=== PATIENT | male | born 1965 | race American Indian/Alaskan Native ===

== ENCOUNTER 2016-06-21 17:50 | Emergency (ER) | payer SELFPAY ==
--- NOTE | 2016-06-21 22:55 | Emergency Department Report ---
ED General Adult HPI - General Chief complaint: Extremity Injury, Upper Stated complaint: LEFT WRIST PAIN Time Seen by Provider: 06/21/16 22:22 Source: patient Mode of arrival: Ambulatory Limitations: No Limitations - History of Present Illness Initial comments: Patient complains of left wrist pain 1 month. States feels like bone rubbing on bone worse first awakening in the morning. States pain improves after stretching and as the day progresses. Denies swelling, difficulty using wrist and hand, redness, weakness, tingling, numbness. States no BP meds in at least 2-3 weeks. States supposed to be taking losartan/HCTZ 50/12.5 mg daily for BP. Denies s/sx of elevated BP. - Related Data Home Medications Medication Instructions Recorded Confirmed Last Taken Losartan/Hydrochlorothiazide 1 tab PO QDAY 06/05/15 06/05/15 06/05/15 [Hyzaar 100-25 TAB] Previous Rx's Medication Instructions Recorded Last Taken Type HYDROcodone/APAP 5-325 [Buena 1 each PO Q6HR PRN #14 tablet 05/07/15 Unknown Rx 5/325] Ibuprofen [Motrin] 800 mg PO Q8HR PRN #60 tablet 05/07/15 06/05/15 Rx Pantoprazole [Protonix TAB] 20 mg PO BID #60 tablet. 06/06/15 Unknown Rx Meloxicam [Mobic] 7.5 mg PO QDAY #30 tablet 06/21/16 Unknown Rx Allergies Allergy/AdvReac Type Severity Reaction Status Date / Time No Known Allergies Allergy Unverified 05/07/15 19:03 ED Review of Systems ROS: Stated complaint: LEFT WRIST PAIN Other details as noted in HPI Comment: All other systems reviewed and negative ED Past Medical Hx - Past Medical History Hx Hypertension: Yes - Social History Smoking Status: Current Every Day Smoker - Medications Home Medications: Home Medications Medication Instructions Recorded Confirmed Last Taken Type HYDROcodone/APAP 5-325 [Buena 1 each PO Q6HR PRN #14 tablet 05/07/15 06/05/15 Unknown Rx 5/325] Ibuprofen [Motrin] 800 mg PO Q8HR PRN #60 tablet 05/07/15 06/05/15 06/05/15 Rx Losartan/Hydrochlorothiazide 1 tab PO QDAY 06/05/15 06/05/15 06/05/15 History [Hyzaar 100-25 TAB] Pantoprazole [Protonix TAB] 20 mg PO BID #60 tablet. 06/06/15 Unknown Rx Meloxicam [Mobic] 7.5 mg PO QDAY #30 tablet 06/21/16 Unknown Rx ED Physical Exam - General Limitations: No Limitations General appearance: alert, in no apparent distress - Head Head exam: Present: atraumatic, normocephalic - Eye Eye exam: Present: normal appearance, PERRL, EOMI. Absent: scleral icterus, conjunctival injection, periorbital swelling, periorbital tenderness - Neck Neck exam: Present: normal inspection, full ROM - Respiratory Respiratory exam: Present: normal lung sounds bilaterally. Absent: respiratory distress - Cardiovascular Cardiovascular Exam: Present: regular rate, normal rhythm - External exam: Present: erythema - Extremities Exam Extremities exam: Present: normal inspection, full ROM, tenderness (radial aspect of left wrist with possible bone spure on palpation.), normal capillary refill. Absent: pedal edema, joint swelling, calf tenderness - Neurological Exam Neurological exam: Present: alert, oriented X3, normal gait, reflexes normal. Absent: motor sensory deficit - Psychiatric Psychiatric exam: Present: normal affect, normal mood - Skin Skin exam: Present: warm, dry, intact, normal color. Absent: rash, pallor ED Course Vital Signs 06/21/16 06/21/16 18:36 23:30 Temperature 98.3 F Pulse Rate 91 H 88 Respiratory 18 18 Rate Blood Pressure 156/113 Blood Pressure 161/92 [Right] O2 Sat by Pulse 100 99 Oximetry ED Medical Decision Making - Radiology Data 50 YOM with left wrist arthritis. Patient is stable. He will be DC'd on oral Mobic (see rx). Patient education, follow-up/referral, and return instructions provided. Patient's BP also noted including recheck. He is asymptomatic and noncompliance with his BP medication. Medication compliance strongly advised. He is instructed to follow-up immediately with his PCP. He verbalized understanding and is agreeable to plan. Critical care attestation.: If time is entered above; I have spent that time in minutes in the direct care of this critically ill patient, excluding procedure time. ED Disposition Clinical Impression: Arthritic-like pain Qualifiers: Joint pain location: wrist Laterality: left Qualified Code(s): M25.532 - Pain in left wrist Disposition: DISCHARGED TO HOME OR SELFCARE Is pt being admited?: No Does the pt Need Aspirin: No Condition: Stable Instructions: Osteoarthritis (ED) Additional Instructions: Follow instructions for care. Use medication(s) as prescribed. Follow-up with agricultural specialist follow-up. As discussed, Be compliant with antihypertensive medication, and follow-up immediately with your PCP for elevated blood pressure as not doing so in a timely manner could result in heart attack and stroke. Return to ED for new or worsening condition. Prescriptions: Meloxicam [Mobic] 7.5 mg PO QDAY #30 tablet Referrals: [facility] [Outside] - 3-5 Days PRIMARY CARE, [Primary Care Provider] - 3-5 Days CARLENE DORSEY MD [Staff Physician] - 3-5 Days Forms: Work/School Release Form(ED)
[2016-06-21 23:45] VITALS: BP 161/92
== END 2016-06-21 23:46 | disposition home or self-care (01) ==
LOC: ED 17:50
DX: M25.532 Pain in left wrist (principal); I10 Essential (primary) hypertension; F17.200 Nicotine dependence, unspecified, uncomplicated
CPT/HCPCS: 99282

== ENCOUNTER 2018-09-02 13:43 | Inpatient (IN) | payer OTHER ==
--- NOTE | 2018-09-02 14:03 | Emergency Department Report ---
Blank Doc - Documentation Documentation: 53 y o male with hx of GI bleed 5 years ago presents with dark stained blood in the stool x 1 week no abd pain,n.v labs acc eval
[2018-09-02 14:53] LABS: Amphetamine Screen,Urine PRESUMPTIVE NEGATIVE; Benzodiazepines Screen,Urine PRESUMPTIVE NEGATIVE; Cannabinoid Screen,Urine PRESUMPTIVE NEGATIVE; Cocaine Screen,Urine PRESUMPTIVE NEGATIVE; Methadone Screen,Urine PRESUMPTIVE NEGATIVE; Opiate Screen,Urine PRESUMPTIVE NEGATIVE
[2018-09-02 15:19] LABS: Basophils % (Auto) 0.4 % (0.0-1.8); Eosinophils % (Auto) 0.3 % (0.0-4.3); Hematocrit 26.7 % (35.5-45.6); Hemoglobin 9.1 gm/dl (11.8-15.2); Lymphocytes # (Auto) 2.1 K/mm3 (1.2-5.4); Lymphocytes % (Auto) 30.4 % (13.4-35.0); Mean Corpuscular HGB Conc 34 % (32-34); Mean Corpuscular Volume 90 fl (84-94); Monocytes # (Auto) 0.4 K/mm3 (0.0-0.8); Monocytes % (Auto) 5.8 % (0.0-7.3); Platelet Count 162 K/mm3 (140-440); Red Blood Count 2.95 M/mm3 (3.65-5.03); Red Cell Distribution Width 14.2 % (13.2-15.2)
[2018-09-02 15:28] LABS: Partial Thromboplastin Time 25.2 Sec. (24.2-36.6)
[2018-09-02 15:49] LABS: Alanine Aminotransferase 18 units/L (7-56); Albumin 3.8 g/dL (3.9-5); BUN/Creatinine Ratio 32; Blood Urea Nitrogen 35 mg/dL (9-20); Calcium 8.6 mg/dL (8.4-10.2); Hemolysis Index 4
[2018-09-02 15:52] LABS: Bilirubin,Direct < 0.2 mg/dL (0-0.2)
[2018-09-02 16:02] LABS: INR 0.96 (0.87-1.13)
--- NOTE | 2018-09-02 16:20 | Emergency Department Report ---
ED GI Bleed HPI - General Chief complaint: GI Bleed Stated complaint: SOB/WEAK Time Seen by Provider: 09/02/18 16:00 Source: patient Mode of arrival: Ambulatory Limitations: No Limitations - History of Present Illness Initial comments: Patient is a 53-year-old male that presents emergent complaints of GI bleed and dark stool for one week. Patient states he was seen his primary care's office yesterday and had a hemoglobin 11.2. Patient states primary care advised him to come to the ER yesterday but he didn't. Patient given today because he is feel ing more weak and having dyspnea on exertion. Patient denies chest pain. Patient denies shortness of breath at rest. Patient denies abdominal pain. Patient denies rectal pain. Patient denies bright red blood per rectum. Patient denies vomiting. Patient denies nausea. Patient denies fever or chills. Patient originally went to see his primary care yesterday for shoulder and neck pain. Patient was given a shot of Toradol and his primary care's office yesterday. After the shot the patient was found to have anemia and was instructed to come to the ER. MD complaint: melena -: Sudden, days(s) (7 days) Severity scale (0 -10): 0 Quality: painless Improves with: none Worsens with: none Associated Symptoms: malaise, weakness. denies: abdominal pain, nausea, vomiting, epistaxis, fever/chills, headaches, loss of appetite, easy bruising, rash, other bleeding, shortness of breath, syncope - Related Data Home Medications Medication Instructions Recorded Confirmed Last Taken Losartan/Hydrochlorothiazide 1 tab PO QDAY 06/05/15 06/05/15 06/05/15 [Hyzaar 100-25 TAB] Previous Rx's Medication Instructions Recorded Last Taken Type Ibuprofen [Motrin] 800 mg PO Q8HR PRN #60 tablet 05/07/15 06/05/15 Rx Pantoprazole [Protonix TAB] 20 mg PO BID #60 tablet. 06/06/15 Unknown Rx Meloxicam [Mobic] 7.5 mg PO QDAY #30 tablet 06/21/16 Unknown Rx Allergies Allergy/AdvReac Type Severity Reaction Status Date / Time No Known Allergies Allergy Unverified 05/07/15 19:03 ED Review of Systems ROS: Stated complaint: SOB/WEAK Other details as noted in HPI Constitutional: denies: chills, fever Eyes: denies: eye pain, eye discharge, vision change ENT: denies: ear pain, throat pain Respiratory: SOB with exertion. denies: cough, shortness of breath, SOB at rest, wheezing Cardiovascular: denies: chest pain, palpitations Endocrine: no symptoms reported Gastrointestinal: melena. denies: abdominal pain, nausea, diarrhea Genitourinary: denies: urgency, dysuria Musculoskeletal: denies: back pain, joint swelling, arthralgia Skin: denies: rash, lesions Neurological: denies: headache, weakness, paresthesias Psychiatric: denies: anxiety, depression Hematological/Lymphatic: denies: easy bleeding, easy bruising ED Past Medical Hx - Past Medical History Previous Medical History?: Yes Hx Hypertension: Yes Hx GERD: Yes - Surgical History Past Surgical History?: No - Family History Family history: no significant - Social History Smoking Status: Former Smoker Substance Use Type: None - Medications Home Medications: Home Medications Medication Instructions Recorded Confirmed Last Taken Type Ibuprofen [Motrin] 800 mg PO Q8HR PRN #60 tablet 05/07/15 06/05/15 06/05/15 Rx Losartan/Hydrochlorothiazide 1 tab PO QDAY 06/05/15 06/05/15 06/05/15 History [Hyzaar 100-25 TAB] Pantoprazole [Protonix TAB] 20 mg PO BID #60 tablet. 06/06/15 Unknown Rx Meloxicam [Mobic] 7.5 mg PO QDAY #30 tablet 06/21/16 Unknown Rx ED Physical Exam - General Limitations: No Limitations General appearance: alert, in no apparent distress - Head Head exam: Present: atraumatic, normocephalic - Eye Eye exam: Present: normal appearance - ENT ENT exam: Present: mucous membranes dry - Neck Neck exam: Present: normal inspection - Respiratory Respiratory exam: Present: normal lung sounds bilaterally. Absent: respiratory distress - Cardiovascular Cardiovascular Exam: Present: regular rate, normal rhythm. Absent: systolic murmur, diastolic murmur, rubs, gallop - GI/Abdominal GI/Abdominal exam: Present: soft, normal bowel sounds. Absent: distended, tenderness, guarding, rebound - Rectal Rectal exam: Present: deferred - Extremities Exam Extremities exam: Present: normal inspection - Back Exam Back exam: Present: normal inspection - Neurological Exam Neurological exam: Present: alert, oriented X3 - Psychiatric Psychiatric exam: Present: normal affect, normal mood - Skin Skin exam: Present: warm, dry, intact, normal color. Absent: rash ED Course Vital Signs 09/02/18 09/02/18 09/02/18 13:46 16:02 16:08 Temperature 97.8 F Pulse Rate 100 H Respiratory 16 11 L 12 Rate Blood Pressure 122/82 [Right] O2 Sat by Pulse 99 Oximetry - Reevaluation(s) Reevaluation #1: Initial evaluation done. mechanical design technician at bedside to the CT scan. I felt unnecessary to do a CT scan of the abdomen. Patient is not having abdominal pain. CT scan canceled. We'll consult GI. Patient's normally hypertensive in the 140s at home. Patient's blood pressure during initial exam was 105/70. Patient will be given saline. This is a relative hypotension. 09/02/18 16:10 Reevaluation #2: Discussed all results and Plan of care with patient. Patient agrees with plan of care. Patient was admitted to the hospitalist service. 09/02/18 16:30 - Consultations Consultation #1: GI consulted. Dr. Cohen states the patient should be admitted to the hospitalist service and given IV protonix. Dr. Cohen states she will see the patient 09/02/18 16:20 Consultation #2: Hospitalist consulted for admission. Hospitalist to admit patient. 09/02/18 16:45 ED Medical Decision Making - Lab Data Result diagrams: 09/02/18 14:37 09/02/18 14:37 - EKG Data -: EKG Interpreted by Me EKG shows normal: sinus rhythm, axis, intervals, QRS complexes, ST-T waves Rate: normal - EKG Data Interpretation: [facility] - Medical Decision Making Patient is a 53-year-old mellitus emergency with complaints of bleeding and melena. Patient found to be anemic. Patient was admitted to the hospitalist service. Patient also found to be hypotensive. Patient normally runs in the 140s at home so the patient's blood pressure is significantly low for him. Chinyere ent was given saline. Patient was given IV Protonix. GI consulted. - Differential Diagnosis gi bleed. melena. hypotension./ Critical Care Time: Yes Critical care attestation.: If time is entered above; I have spent that time in minutes in the direct care of this critically ill patient, excluding procedure time. Critical Care Time: 35 minutes ED Disposition Clinical Impression: Melena, BATES (dyspnea on exertion) Hypotension Qualifiers: Hypotension type: unspecified hypotension type Qualified Code(s): I95.9 - Hypotension, unspecified GI bleed Qualifiers: GI bleed type/associated pathology: melena Qualified Code(s): K92.1 - Melena Anemia Qualifiers: Anemia type: unspecified type Qualified Code(s): D64.9 - Anemia, unspecified Disposition: DC-09 OP ADMIT IP TO THIS HOSP Is pt being admited?: Yes Does the pt Need Aspirin: No Condition: Critical Referrals: SUZY ZAVALA MD [Primary Care Provider] - 3-5 Days Forms: Accompanied Note Time of Disposition: 16:55
[2018-09-02] MEDS ORDERED: PROTONIX IV ONE (16:22)
[2018-09-02] MEDS ORDERED: NACL 0.9% 1000 ML 1,000 ML IV ONE (16:22)
--- NOTE | 2018-09-02 17:48 | Gastroenterology Consultation ---
History of Present Illness - Reason for Consult Consult date: 09/02/18 melena, GI bleed Requesting physician: SAMUEL LINDSEY III - History of Present Illness This is a 53 yo male presenting to the ED with black stools for past week and abdominal pain. GI consulted for upper GI bleed. He has been taking ibuprofen daily x 1 week for right shoulder pain and noticed black stools for several days. He was seen at his PCP office yesterday and received toradol shot. His Hgb was at 11.2 yesterday. Today it's down to 9. Denies any bright red blood in the stool. He thinks he had an ulcer years ago and had EGD done. Past History Past Surgical History: denies: bowel surgery Social history: , other (alcohol use) Family history: cancer Medications and Allergies Allergies Allergy/AdvReac Type Severity Reaction Status Date / Time No Known Allergies Allergy Unverified 05/07/15 19:03 Home Medications Medication Instructions Recorded Confirmed Last Taken Type Ibuprofen [Motrin] 800 mg PO Q8HR PRN #60 tablet 05/07/15 06/05/15 06/05/15 Rx Losartan/Hydrochlorothiazide 1 tab PO QDAY 06/05/15 06/05/15 06/05/15 History [Hyzaar 100-25 TAB] Pantoprazole [Protonix TAB] 20 mg PO BID #60 tablet. 06/06/15 Unknown Rx Meloxicam [Mobic] 7.5 mg PO QDAY #30 tablet 06/21/16 Unknown Rx Review of Systems - Review of Systems Constitutional: no weight loss, no weight gain Eyes: deferred Ears, Nose, Throat: deferred Cardiovascular: no chest pain Gastrointestinal: abdominal pain, melena, no nausea, no vomiting Neurological: weakness Hematologic/Lymphatic: no easy bruising Allergic/Immunologic: no wheezing Exam - Constitutional Vital Signs: Temp Pulse Resp BP Pulse Ox 97.8 F 100 H 12 122/82 99 09/02/18 13:46 09/02/18 13:46 09/02/18 16:08 09/02/18 13:46 09/02/18 13:46 General appearance: no acute distress, well-nourished - EENT Eyes: PERRL ENT: hearing intact, clear oral mucosa, dentition normal - Neck Neck: supple, normal ROM, no masses or JVD - Respiratory Respiratory effort: normal Respiratory: bilateral: CTA - Breasts Breasts: deferred - Cardiovascular Rhythm: regular Heart Sounds: Present: S1 & S2. Absent: gallop, rub Extremities: pulses intact, No edema, normal color, Full ROM - Gastrointestinal General gastrointestinal: Present: soft, tender, non-distended, normal bowel sounds - Integumentary Integumentary: Present: clear, warm, dry - Neurologic Neurological: alert and oriented x3 - Psychiatric Psychiatric: appropriate mood/affect, intact judgment & insight, memory intact - Labs CBC & Chem 7: 09/02/18 14:37 09/02/18 14:37 Lab Results: Laboratory Results - last 24 hr 09/02/18 09/02/18 09/02/18 13:40 14:37 14:37 WBC 7.0 RBC 2.95 L Hgb 9.1 L Hct 26.7 L MCV 90 MCH 31 MCHC 34 RDW 14.2 Plt Count 162 Lymph % (Auto) 30.4 Childress % (Auto) 5.8 Eos % (Auto) 0.3 Baso % (Auto) 0.4 Lymph # 2.1 Childress # 0.4 Eos # 0.0 Baso # 0.0 Seg Neutrophils % 63.1 Seg Neutrophils # 4.4 PT 13.4 INR 0.96 APTT 25.2 Sodium Potassium Chloride Carbon Dioxide Anion Gap BUN Creatinine Estimated GFR BUN/Creatinine Ratio Glucose Lactic Acid Calcium Magnesium Total Bilirubin Direct Bilirubin Indirect Bilirubin AST ALT Alkaline Phosphatase Total Protein Albumin Albumin/Globulin Ratio Urine Opiates Screen Presumptive negative Urine Methadone Screen Presumptive negative Ur Barbiturates Screen Presumptive negative Ur Phencyclidine Scrn Presumptive negative Ur Amphetamines Screen Presumptive negative U Benzodiazepines Scrn Presumptive negative Urine Cocaine Screen Presumptive negative U Marijuana (THC) Screen Presumptive negative Drugs of Abuse Note Disclamer 09/02/18 09/02/18 14:37 14:37 WBC RBC Hgb Hct MCV MCH MCHC RDW Plt Count Lymph % (Auto) Childress % (Auto) Eos % (Auto) Baso % (Auto) Lymph # Childress # Eos # Baso # Seg Neutrophils % Seg Neutrophils # PT INR APTT Sodium 143 Potassium 3.9 Chloride 105.8 Carbon Dioxide 26 Anion Gap 15 BUN 35 H Creatinine 1.1 Estimated GFR > 60 BUN/Creatinine Ratio 32 Glucose 119 H Lactic Acid 1.20 Calcium 8.6 Magnesium 2.10 Total Bilirubin 0.20 Direct Bilirubin < 0.2 Indirect Bilirubin 0.0 AST 16 ALT 18 Alkaline Phosphatase 53 Total Protein 5.7 L Albumin 3.8 L Albumin/Globulin Ratio 2.0 Urine Opiates Screen Urine Methadone Screen Ur Barbiturates Screen Ur Phencyclidine Scrn Ur Amphetamines Screen U Benzodiazepines Scrn Urine Cocaine Screen U Marijuana (THC) Screen Drugs of Abuse Note Assessment and Plan - Patient Problems (1) GI bleed Current Visit: Yes Status: Acute Qualifiers: GI bleed type/associated pathology: melena Qualified Code(s): K92.1 - Melena Plan to address problem: Melena: in the setting of NSAID use. - Hgb down from 11 to 9. - otherwise normal CBC and CMP. - no anticoagulant use. - suspect PUD. Rec: - protonix IV - monitor H/H serially and transfuse with hgb goal >7. - will plan for EGD tomorrow. - clear liquids now and NPO MN. - will follow.
[2018-09-02] MEDS ORDERED: DILAUDID ONE (18:36)
[2018-09-02] MEDS ORDERED: DILAUDID IV ONE (18:39)
--- NOTE | 2018-09-02 21:56 | History and Physical Report ---
History of Present Illness Date of examination: 09/02/18 Date of admission: 09/02/18 17:58 Chief complaint: Lower GI bleed 1 week History of present illness: Patient is a 53-year-old male that presents emergent complaints of GI bleed and dark stool for one week. Patient states he was seen his primary care's office yesterday and had a hemoglobin 11.2. Patient states primary care advised him to come to the ER yesterday but he didn't. Patient came today because he is feeling more weak and having dyspnea on exertion. Patient denies chest pain. Patient denies shortness of breath at rest. Patient denies abdominal pain. Patient denies rectal pain. Patient denies bright red blood per rectum. Patient denies vomiting. Patient denies nausea. Patient denies fever or chills. Has been taking IUbuprofen. Past Medical History Previous Medical History?: Yes Hypertension: Yes GERD: Yes Surgical History Past Surgical History?: No Family History Family history: no significant Social History Smoking Status: Former Smoker--till 7 yrs ago Substance Use Type: None Medications Home Medications: Home Medications Medication Instructions Recorded Confirmed Last Taken Type Ibuprofen [Motrin] 800 mg PO Q8HR PRN #60 tablet 05/07/15 06/05/15 06/05/15 Rx Losartan/Hydrochlorothiazide 1 tab PO QDAY 06/05/15 06/05/15 06/05/15 History [Hyzaar 100-25 TAB] Pantoprazole [Protonix TAB] 20 mg PO BID #60 tablet. 06/06/15 Unknown Rx Meloxicam [Mobic] 7.5 mg PO QDAY #30 tablet 06/21/16 Unknown Rx Review of Systems ROS: Stated complaint: SOB/WEAK Other details as noted in HPI Constitutional: denies: chills, fever Eyes: denies: eye pain, eye discharge, vision change ENT: denies: ear pain, throat pain Respiratory: SOB with exertion. denies: cough, shortness of breath, SOB at rest, wheezing Cardiovascular: denies: chest pain, palpitations Endocrine: no symptoms reported Gastrointestinal: melena. denies: abdominal pain, nausea, diarrhea Genitourinary: denies: urgency, dysuria Musculoskeletal: denies: back pain, joint swelling, arthralgia Skin: denies: rash, lesions Neurological: denies: headache, weakness, paresthesias Psychiatric: denies: anxiety, depression Hematological/Lymphatic: denies: easy bleeding, easy bruising Past History Past Surgical History: denies: bowel surgery Social history: , other (alcohol use) Family history: cancer Medications and Allergies Allergies Allergy/AdvReac Type Severity Reaction Status Date / Time No Known Allergies Allergy Unverified 05/07/15 19:03 Home Medications Medication Instructions Recorded Confirmed Last Taken Type Acetaminophen/Codeine [Tylenol 1 tab PO DAILY PRN 09/02/18 09/02/18 Unknown History /Codeine # 3 tab] Atorvastatin Calcium [Lipitor] 20 mg PO DAILY 09/02/18 09/02/18 Unknown History Metoprolol [Lopressor] 25 mg PO DAILY 09/02/18 09/02/18 Unknown History hydroCHLOROthiazide [HCTZ] 25 mg PO QDAY 09/02/18 09/02/18 Unknown History Exam - Constitutional Vitals: Temp Pulse Resp BP Pulse Ox 97.7 F 89 18 110/77 100 09/02/18 21:01 09/02/18 21:01 09/02/18 21:01 09/02/18 21:01 09/02/18 21:01 General appearance: Present: no acute distress, well-nourished - EENT Eyes: Present: PERRL ENT: hearing intact, clear oral mucosa - Neck Neck: Present: supple, normal ROM - Respiratory Respiratory effort: normal Respiratory: bilateral: CTA - Cardiovascular Heart rate: 78 Rhythm: regular Heart Sounds: Present: S1 & S2. Absent: rub, click - Extremities Extremities: no ischemia, pulses intact, pulses symmetrical, No edema Peripheral Pulses: within normal limits - Abdominal General gastrointestinal: Present: soft, non-tender, non-distended, normal bowel sounds Male genitourinary: Present: normal - Rectal Rectal Exam: stool dark (OB positive) - Integumentary Integumentary: Present: clear, warm, dry - Musculoskeletal Musculoskeletal: gait normal, strength equal bilaterally - Psychiatric Psychiatric: appropriate mood/affect, intact judgment & insight - Neurologic Neurologic: CNII-XII intact, moves all extremities - Allied Health Allied health notes reviewed: nursing, case management Results - Labs CBC & Chem 7: 09/02/18 14:37 09/02/18 14:37 Labs: Laboratory Last Values WBC 7.0 K/mm3 (4.5-11.0) 09/02/18 14:37 RBC 2.95 M/mm3 (3.65-5.03) L 09/02/18 14:37 Hgb 9.1 gm/dl (11.8-15.2) L 09/02/18 14:37 Hct 26.7 % (35.5-45.6) L 09/02/18 14:37 MCV 90 fl (84-94) 09/02/18 14:37 MCH 31 pg (28-32) 09/02/18 14:37 MCHC 34 % (32-34) 09/02/18 14:37 RDW 14.2 % (13.2-15.2) 09/02/18 14:37 Plt Count 162 K/mm3 (140-440) 09/02/18 14:37 Lymph % (Auto) 30.4 % (13.4-35.0) 09/02/18 14:37 [place] % (Auto) 5.8 % (0.0-7.3) 09/02/18 14:37 Eos % (Auto) 0.3 % (0.0-4.3) 09/02/18 14:37 Baso % (Auto) 0.4 % (0.0-1.8) 09/02/18 14:37 Lymph # 2.1 K/mm3 (1.2-5.4) 09/02/18 14:37 [place] # 0.4 K/mm3 (0.0-0.8) 09/02/18 14:37 Eos # 0.0 K/mm3 (0.0-0.4) 09/02/18 14:37 Baso # 0.0 K/mm3 (0.0-0.1) 09/02/18 14:37 Seg Neutrophils % 63.1 % (40.0-70.0) 09/02/18 14:37 Seg Neutrophils # 4.4 K/mm3 (1.8-7.7) 09/02/18 14:37 PT 13.4 Sec. (12.2-14.9) 09/02/18 14:37 INR 0.96 (0.87-1.13) 09/02/18 14:37 APTT 25.2 Sec. (24.2-36.6) 09/02/18 14:37 Sodium 143 mmol/L (137-145) 09/02/18 14:37 Potassium 3.9 mmol/L (3.6-5.0) 09/02/18 14:37 Chloride 105.8 mmol/L (98-107) 09/02/18 14:37 Carbon Dioxide 26 mmol/L (22-30) 09/02/18 14:37 Anion Gap 15 mmol/L 09/02/18 14:37 BUN 35 mg/dL (9-20) H 09/02/18 14:37 Creatinine 1.1 mg/dL (0.8-1.5) 09/02/18 14:37 Estimated GFR > 60 ml/min 09/02/18 14:37 BUN/Creatinine Ratio 32 % 09/02/18 14:37 Glucose 119 mg/dL (75-100) H 09/02/18 14:37 Lactic Acid 1.20 mmol/L (0.7-2.0) 09/02/18 14:37 Calcium 8.6 mg/dL (8.4-10.2) 09/02/18 14:37 Magnesium 2.10 mg/dL (1.7-2.3) 09/02/18 14:37 Total Bilirubin 0.20 mg/dL (0.1-1.2) 09/02/18 14:37 Direct Bilirubin < 0.2 mg/dL (0-0.2) 09/02/18 14:37 Indirect Bilirubin 0.0 mg/dL 09/02/18 14:37 AST 16 units/L (5-40) 09/02/18 14:37 ALT 18 units/L (7-56) 09/02/18 14:37 Alkaline Phosphatase 53 units/L (35-129) 09/02/18 14:37 Total Protein 5.7 g/dL (6.3-8.2) L 09/02/18 14:37 Albumin 3.8 g/dL (3.9-5) L 09/02/18 14:37 Albumin/Globulin Ratio 2.0 % 09/02/18 14:37 Urine Opiates Screen Presumptive negative 09/02/18 13:40 Urine Methadone Screen Presumptive negative 09/02/18 13:40 Ur Barbiturates Screen Presumptive negative 09/02/18 13:40 Ur Phencyclidine Scrn Presumptive negative 09/02/18 13:40 Ur Amphetamines Screen Presumptive negative 09/02/18 13:40 U Benzodiazepines Scrn Presumptive negative 09/02/18 13:40 Urine Cocaine Screen Presumptive negative 09/02/18 13:40 U Marijuana (THC) Screen Presumptive negative 09/02/18 13:40 Drugs of Abuse Note Disclamer 09/02/18 13:40 Blood Type O POSITIVE 09/02/18 17:02 Antibody Screen Negative 09/02/18 17:02 Short CBC 09/02/18 Range/Units 14:37 WBC 7.0 (4.5-11.0) K/mm3 Hgb 9.1 L (11.8-15.2) gm/dl Hct 26.7 L (35.5-45.6) % Plt Count 162 (140-440) K/mm3 BMP 09/02/18 14:37 Sodium 143 Potassium 3.9 Chloride 105.8 Carbon Dioxide 26 BUN 35 H Creatinine 1.1 Glucose 119 H Calcium 8.6 Cardiac Enzymes 09/03/18 Range/Units 02:17 Total Creatine Kinase 556 H (55-170) units/L CK-MB (CK-2) 3.3 (0.0-4.0) ng/mL Troponin T < 0.010 (0.00-0.029) ng/mL Liver Function 09/02/18 Range/Units 14:37 Total Bilirubin 0.20 (0.1-1.2) mg/dL Direct Bilirubin < 0.2 (0-0.2) mg/dL AST 16 (5-40) units/L ALT 18 (7-56) units/L Alkaline Phosphatase 53 (35-129) units/L Albumin 3.8 L (3.9-5) g/dL Assessment and Plan Advance Directives: Yes (Full code) VTE prophylaxis?: Mechanical Plan of care discussed with patient/family: Yes - Patient Problems (1) GI bleed Current Visit: Yes Status: Acute Qualifiers: GI bleed type/associated pathology: gastrojejunal ulcer Qualified Code(s): 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 Blood transfusion if Hemoglobin below 7.0 IV Protonix drip GI consult Possible EGD Avoid NSAIDS (2) HTN (hypertension) Current Visit: Yes Status: Chronic Qualifiers: Hypertension type: essential hypertension Qualified Code(s): I10 - Essential (primary) hypertension Plan to address problem: Catapress patch if necessary Monitor BPclosely (3) Arthritis Current Visit: Yes Status: Chronic Plan to address problem: Only Tylenol or Tramadol infuture (4) DVT prophylaxis Current Visit: Yes Status: Acute Plan to address problem: On Scd'd snd GI prophylaxis
[2018-09-03] MEDS ORDERED: TYLENOL PO PRN (00:56)
[2018-09-03] MEDS ORDERED: ZOFRAN IV PRN (00:56)
[2018-09-03] MEDS ORDERED: REGLAN IV PRN (00:56)
[2018-09-03] MEDS ORDERED: SODIUM CHLORIDE FLUSH SYRINGE 10 ML IV PRN (00:56)
[2018-09-03] MEDS: DILAUDID IV PRN (02:33)
[2018-09-03] MEDS: NACL 0.9% 1000 ML 1,000 ML IV SCH ×2 (02:34→17:40)
[2018-09-03] MEDS: PROTONIX 80 MG in NACL 0.9% 100 ML IV SCH ×2 (02:35→21:39)
[2018-09-03 03:00] LABS: Creatine Kinase MB 3.3 ng/mL (0.0-4.0)
--- NOTE | 2018-09-03 07:44 | Progress Note ---
Assessment and Plan Assessment and plan: Patient is a 53-year-old male that presents emergent complaints of GI bleed and dark stool for one week. Patient states he was seen his primary care's office yesterday and had a hemoglobin 11.2. Patient states primary care advised him to come to the ER yesterday but he didn't. Patient came today because he is feeling more weak and having dyspnea on exertion. Patient denies chest pain. Patient denies shortness of breath at rest. Patient denies abdominal pain. Patient denies rectal pain. Patient denies bright red blood per rectum. Patient denies vomiting. Patient denies nausea. Patient denies fever or chills. 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 Blood transfusion if Hemoglobin below 7.0 Hemoglobin on admission was 9.1 IV Protonix drip GI consult and plans for EGD today Keep NPO and resume diet based on EGD FINDING Avoid NSAIDS (2) HTN (hypertension) Current Visit: Yes Status: Chronic Qualifiers: Hypertension type: essential hypertension Qualified Code(s): I10 - Cari valverde (primary) hypertension Plan to address problem: Catapress patch if necessary Monitor BPclosely (3) Arthritis Current Visit: Yes Status: Chronic Plan to address problem: Only Tylenol or Tramadol in future Recommed outpatient Ortho if has not seen (4) DVT prophylaxis Current Visit: Yes Status: Acute Plan to address problem: On Scd'd snd GI prophylaxis History Interval history: Patient seen and examined, resting comfotably, just returning from Endoscopy, no new complaints Hospitalist Physical - Physical exam Narrative exam: VITAL SIGNS: Reviewed. GENERAL: The patient appeared well nourished and normally developed, Vital signs as documented. HEAD: No signs of head trauma. EYES: Pupils are equal. Extraocular motions intact. right eye opacification EARS: Hearing grossly intact. MOUTH: Oropharynx is normal. NECK: No adenopathy, no JVD. CHEST: Chest with clear breath sounds bilaterally. No wheezes, rales, or rhonchi. CARDIAC: Regular rate and rhythm. S1 and S2, without murmurs, gallops, or rubs. VASCULAR: No Edema. Peripheral pulses normal and equal in all extremities. ABDOMEN: Soft, non tender and non distended. No rebound or guarding, and no masses palpated. Bowel Sounds normal. MUSCULOSKELETAL: Good range of motion of all major joints. Extremities without clubbing, cyanosis or edema. NEUROLOGIC EXAM: Alert and oriented x 3 No focal sensory or strength deficits. Speech normal. Follows commands. PSYCHIATRIC: Mood normal. SKIN: No rash or lesions. - Constitutional Vitals: Temp Pulse Resp BP Pulse Ox 97.8 F 73 20 118/86 99 09/03/18 04:26 09/03/18 04:26 09/03/18 04:26 09/03/18 04:26 09/03/18 04:26 General appearance: Present: no acute distress, well-nourished Results - Labs CBC & Chem 7: 09/04/18 05:56 09/04/18 05:56 Labs: Laboratory Last Values WBC 7.0 K/mm3 (4.5-11.0) 09/02/18 14:37 RBC 2.95 M/mm3 (3.65-5.03) L 09/02/18 14:37 Hgb 9.1 gm/dl (11.8-15.2) L 09/02/18 14:37 Hct 26.7 % (35.5-45.6) L 09/02/18 14:37 MCV 90 fl (84-94) 09/02/18 14:37 MCH 31 pg (28-32) 09/02/18 14:37 MCHC 34 % (32-34) 09/02/18 14:37 RDW 14.2 % (13.2-15.2) 09/02/18 14:37 Plt Count 162 K/mm3 (140-440) 09/02/18 14:37 Lymph % (Auto) 30.4 % (13.4-35.0) 09/02/18 14:37 [place] % (Auto) 5.8 % (0.0-7.3) 09/02/18 14:37 Eos % (Auto) 0.3 % (0.0-4.3) 09/02/18 14:37 Baso % (Auto) 0.4 % (0.0-1.8) 09/02/18 14:37 Lymph # 2.1 K/mm3 (1.2-5.4) 09/02/18 14:37 [place] # 0.4 K/mm3 (0.0-0.8) 09/02/18 14:37 Eos # 0.0 K/mm3 (0.0-0.4) 09/02/18 14:37 Baso # 0.0 K/mm3 (0.0-0.1) 09/02/18 14:37 Seg Neutrophils % 63.1 % (40.0-70.0) 09/02/18 14:37 Seg Neutrophils # 4.4 K/mm3 (1.8-7.7) 09/02/18 14:37 PT 13.4 Sec. (12.2-14.9) 09/02/18 14:37 INR 0.96 (0.87-1.13) 09/02/18 14:37 APTT 25.2 Sec. (24.2-36.6) 09/02/18 14:37 Sodium 143 mmol/L (137-145) 09/02/18 14:37 Potassium 3.9 mmol/L (3.6-5.0) 09/02/18 14:37 Chloride 105.8 mmol/L (98-107) 09/02/18 14:37 Carbon Dioxide 26 mmol/L (22-30) 09/02/18 14:37 Anion Gap 15 mmol/L 09/02/18 14:37 BUN 35 mg/dL (9-20) H 09/02/18 14:37 Creatinine 1.1 mg/dL (0.8-1.5) 09/02/18 14:37 Estimated GFR > 60 ml/min 09/02/18 14:37 BUN/Creatinine Ratio 32 % 09/02/18 14:37 Glucose 119 mg/dL (75-100) H 09/02/18 14:37 Hemoglobin A1c 5.5 % (4-6) 09/03/18 02:17 Lactic Acid 1.20 mmol/L (0.7-2.0) 09/02/18 14:37 Calcium 8.6 mg/dL (8.4-10.2) 09/02/18 14:37 Magnesium 2.10 mg/dL (1.7-2.3) 09/02/18 14:37 Total Bilirubin 0.20 mg/dL (0.1-1.2) 09/02/18 14:37 Direct Bilirubin < 0.2 mg/dL (0-0.2) 09/02/18 14:37 Indirect Bilirubin 0.0 mg/dL 09/02/18 14:37 AST 16 units/L (5-40) 09/02/18 14:37 ALT 18 units/L (7-56) 09/02/18 14:37 Alkaline Phosphatase 53 units/L (35-129) 09/02/18 14:37 Total Creatine Kinase 556 units/L (55-170) H 09/03/18 02:17 CK-MB (CK-2) 3.3 ng/mL (0.0-4.0) 09/03/18 02:17 CK-MB (CK-2) Rel Index 0.5 (0-4) 09/03/18 02:17 Troponin T < 0.010 ng/mL (0.00-0.029) 09/03/18 02:17 Total Protein 5.7 g/dL (6.3-8.2) L 09/02/18 14:37 Albumin 3.8 g/dL (3.9-5) L 09/02/18 14:37 Albumin/Globulin Ratio 2.0 % 09/02/18 14:37 Urine Opiates Screen Presumptive negative 09/02/18 13:40 Urine Methadone Screen Presumptive negative 09/02/18 13:40 Ur Barbiturates Screen Presumptive negative 09/02/18 13:40 Ur Phencyclidine Scrn Presumptive negative 09/02/18 13:40 Ur Amphetamines Screen Presumptive negative 09/02/18 13:40 U Benzodiazepines Scrn Presumptive negative 09/02/18 13:40 Urine Cocaine Screen Presumptive negative 09/02/18 13:40 U Marijuana (THC) Screen Presumptive negative 09/02/18 13:40 Drugs of Abuse Note Disclamer 09/02/18 13:40 Blood Type O POSITIVE 09/02/18 17:02 Antibody Screen Negative 09/02/18 17:02 Active Medications - Current Medications Current Medications: Generic Name Dose Route Start Last Admin Trade Name Freq PRN Reason Stop Dose Admin Acetaminophen 650 mg 09/03/18 00:56 Tylenol PO Q4H PRN Pain MILD(1-3)/Fever >100.5/ONEILL Hydromorphone HCl 0.5 mg 09/03/18 00:56 09/03/18 02:33 Dilaudid IV 0.5 mg Q3H PRN Administration Pain , Severe (7-10) Sodium Chloride 1,000 mls @ 75 mls/hr 09/03/18 01:00 09/03/18 02:34 Nacl 0.9% 1000 Ml IV 75 mls/hr DIRECT JORGE Administration Pantoprazole Sodium 80 mg/ 100 mls @ 10 mls/hr 09/03/18 01:00 09/03/18 02:35 Sodium Chloride IV 8 mg/hr DIRECT JORGE 10 mls/hr Administration 8 MG/HR Metoclopramide HCl 10 mg 09/03/18 00:56 Reglan IV Q6H PRN Nausea And Vomiting Ondansetron HCl 4 mg 09/03/18 00:56 09/03/18 02:46 Zofran IV 4 mg Q8H PRN Administration Nausea And Vomiting Sodium Chloride 10 ml 09/03/18 10:00 Sodium Chloride Flush Syringe 10 Ml IV BID JORGE Sodium Chloride 10 ml 09/03/18 00:56 09/03/18 02:35 Sodium Chloride Flush Syringe 10 Ml IV 10 ml PRN PRN Administration LINE FLUSH
[2018-09-03 07:52] LABS: Hematocrit 21.8 % (35.5-45.6); Hemoglobin 7.5 gm/dl (11.8-15.2)
[2018-09-03 11:07] LABS: Hematocrit 22.2 % (35.5-45.6); Hemoglobin 7.6 gm/dl (11.8-15.2)
[2018-09-03] MEDS ORDERED: NACL 0.9% 1000 ML 1,000 ML IV SCH (14:00)
[2018-09-03] MEDS ORDERED: XYLOCAINE 2% INFILTRATI ONE (15:12)
[2018-09-03] MEDS ORDERED: DIPRIVAN 10 MG/ML IV ONE ×2 (15:12→15:24)
[2018-09-03] MEDS ORDERED: ADRENALINE P/F ONE (15:26)
--- NOTE | 2018-09-03 15:45 | Operative Report ---
Operative Report Operative Report: Date of procedure: 09/03/2018 Procedure: Esophagogastroduodenoscopy Preprocedure diagnosis: anemia, melena Post procedure diagnosis: multiple gastric ulcers, duodenal bulb ulcer, diverticulosis in the duodenal bulb. Endoscopist: Nishant Cohen MD Anesthesia: Monitored anesthesia care per anesthesia department Medications: Propofol per anesthesia Estimated blood loss: 0 After careful discussion of the nature and purpose of the procedure as well as details the technique risks benefits and alternatives consent was obtained. The patient was placed in the left lateral decubitus position and medicated per anesthesia. The tip of the [employer] EQ 570 video scope was passed per orum under direct vision into the esophagus and advanced into the stomach and 2nd part of the duodenum. The duodenal bulb revealed diverticula and two clean based small nonbleeding ulcers. The scope was withdrawn into the stomach and the stomach then gently insufflated with air. The antrum revealed a deep 1 cm prepyloric ulcer with pigmented spot. It was treated with injection of epinepherine x 4 cc and gold probe cautery. No active bleeding noted. There were 2-3 small clean based ulcers in the antrum. The stomach was further insufflated and the scope was then retroflexed and partially withdrawn. The cardia and fundus appeared normal. The scope was then withdrawn in the forward position. The esophagogastric junction was at 40 cm. The procedure was well tolerated and the patient was observed in recovery. Impressions: 1. Duodenal bulb ulcers (clean based) 2. Diverticulosis in the duodenal bulb. 3. Prepyloric ulcer with red pigmented spot treated with injection of epinepherine and gold probe cautery. 4. Multiple clean based antral ulcers. Plan: 1. Can resume diet with clear liquids. 2. Monitor H/H. 3. Continue protonix for 48 hours and then switch to PO bid dosing for 6 weeks. 4. Follow up outpatient clinic to check on H pylori status. 5. Avoid NSAIDs.
[2018-09-03 17:00] LABS: Hematocrit 22.6 % (35.5-45.6); Hemoglobin 7.7 gm/dl (11.8-15.2)
[2018-09-04] MEDS: SODIUM CHLORIDE FLUSH SYRINGE 10 ML IV SCH ×3 (00:13→22:11)
[2018-09-04] MEDS: DILAUDID IV PRN (01:28)
[2018-09-04 06:33] LABS: Basophils % (Auto) 0.5 % (0.0-1.8); Eosinophils # (Auto) 0.1 K/mm3 (0.0-0.4); Eosinophils % (Auto) 1.9 % (0.0-4.3); Hematocrit 23.6 % (35.5-45.6); Hemoglobin 7.9 gm/dl (11.8-15.2); Lymphocytes # (Auto) 2.5 K/mm3 (1.2-5.4); Mean Corpuscular HGB Conc 34 % (32-34); Mean Corpuscular Volume 92 fl (84-94); Monocytes # (Auto) 0.4 K/mm3 (0.0-0.8); Monocytes % (Auto) 6.7 % (0.0-7.3); Platelet Count 148 K/mm3 (140-440); Red Blood Count 2.57 M/mm3 (3.65-5.03); Red Cell Distribution Width 14.4 % (13.2-15.2)
[2018-09-04 07:00] LABS: Alanine Aminotransferase 15 units/L (7-56); Albumin 3.5 g/dL (3.9-5); BUN/Creatinine Ratio 10; Blood Urea Nitrogen 8 mg/dL (9-20); Calcium 7.9 mg/dL (8.4-10.2); Hemolysis Index 2
[2018-09-04] MEDS: PROTONIX 80 MG in NACL 0.9% 100 ML IV SCH ×2 (10:08→22:08)
[2018-09-04] MEDS: NACL 0.9% 1000 ML 1,000 ML IV SCH (12:15)
--- NOTE | 2018-09-04 13:55 | Progress Note ---
Assessment and Plan Assessment and plan: Patient is a 53-year-old male that presents emergent complaints of GI bleed and dark stool for one week. Patient states he was seen his primary care's office yesterday and had a hemoglobin 11.2. Patient states primary care advised him to come to the ER yesterday but he didn't. Patient came today because he is feeling more weak and having dyspnea on exertion. Patient denies chest pain. Patient denies shortness of breath at rest. Patient denies abdominal pain. Patient denies rectal pain. Patient denies bright red blood per rectum. Patient denies vomiting. Patient denies nausea. Patient denies fever or chills. 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 Blood transfusion if Hemoglobin below 7.0 Hemoglobin on admission was 9.1 IV Protonix drip GI consult and plans for EGD DONE -1. Duodenal bulb ulcers (clean based) -2. Diverticulosis in the duodenal bulb. -3. Prepyloric ulcer with red pigmented spot treated with injection of epinepherine and gold probe cautery. -4. Multiple clean based antral ulcers. With recommendation to keep on IV protonix x 48 hrs then switch to PO bid dosing for 6 weeks. (2) HTN (hypertension) Current Visit: Yes Status: Chronic Qualifiers: Hypertension type: essential hypertension Qualified Code(s): I10 - Essential (primary) hypertension Plan to address problem: STABLE Monitor BP closely (3) Arthritis Current Visit: Yes Status: Chronic Plan to address problem: Only Tylenol or Tramadol in future Recommend outpatient Ortho if has not seen (4) Anemia secondary to Acute blood loss Discussed finding with patient and recommendation by GI Continue as detailed above (5)Morbid obesity weight loss counselling Greater than 15 mins, and patient verbalized understanding (7)DVT prophylaxis Current Visit: Yes Status: Acute Plan to address problem: On Scd'd snd GI prophylaxis History Interval history: Patient seen and examined, Tolerating diet, NO NEW COMPLAIN, FAMILY AT BEDSIDE Hospitalist Physical - Physical exam Narrative exam: VITAL SIGNS: Reviewed. GENERAL: The patient appeared well nourished and normally developed, Vital signs as documented. HEAD: No signs of head trauma. EYES: Pupils are equal. Extraocular motions intact. right eye opacification EARS: Hearing grossly intact. MOUTH: Oropharynx is normal. NECK: No adenopathy, no JVD. CHEST: Chest with clear breath sounds bilaterally. No wheezes, rales, or rhonchi. CARDIAC: Regular rate and rhythm. S1 and S2, without murmurs, gallops, or rubs. VASCULAR: No Edema. Peripheral pulses normal and equal in all extremities. ABDOMEN: Soft, non tender and non distended. No rebound or guarding, and no masses palpated. Bowel Sounds normal. MUSCULOSKELETAL: Good range of motion of all major joints. Extremities without clubbing, cyanosis or edema. NEUROLOGIC EXAM: Alert and oriented x 3 No focal sensory or strength deficits. Speech normal. Follows commands. PSYCHIATRIC: Mood normal. SKIN: No rash or lesions. - Constitutional Vitals: Temp Pulse Resp BP Pulse Ox 98.3 F 84 16 129/89 95 09/04/18 12:39 09/04/18 12:43 09/04/18 12:39 09/04/18 12:39 09/04/18 05:24 General appearance: Present: no acute distress, well-nourished Results - Labs CBC & Chem 7: 09/04/18 05:56 09/04/18 05:56 Labs: Laboratory Last Values WBC 5.7 K/mm3 (4.5-11.0) 09/04/18 05:56 RBC 2.57 M/mm3 (3.65-5.03) L 09/04/18 05:56 Hgb 7.9 gm/dl (11.8-15.2) L 09/04/18 05:56 Hct 23.6 % (35.5-45.6) L 09/04/18 05:56 MCV 92 fl (84-94) 09/04/18 05:56 MCH 31 pg (28-32) 09/04/18 05:56 MCHC 34 % (32-34) 09/04/18 05:56 RDW 14.4 % (13.2-15.2) 09/04/18 05:56 Plt Count 148 K/mm3 (140-440) 09/04/18 05:56 Lymph % (Auto) 44.0 % (13.4-35.0) H 09/04/18 05:56 [place] % (Auto) 6.7 % (0.0-7.3) 09/04/18 05:56 Eos % (Auto) 1.9 % (0.0-4.3) 09/04/18 05:56 Baso % (Auto) 0.5 % (0.0-1.8) 09/04/18 05:56 Lymph # 2.5 K/mm3 (1.2-5.4) 09/04/18 05:56 [place] # 0.4 K/mm3 (0.0-0.8) 09/04/18 05:56 Eos # 0.1 K/mm3 (0.0-0.4) 09/04/18 05:56 Baso # 0.0 K/mm3 (0.0-0.1) 09/04/18 05:56 Seg Neutrophils % 46.9 % (40.0-70.0) 09/04/18 05:56 Seg Neutrophils # 2.7 K/mm3 (1.8-7.7) 09/04/18 05:56 PT 13.4 Sec. (12.2-14.9) 09/02/18 14:37 INR 0.96 (0.87-1.13) 09/02/18 14:37 APTT 25.2 Sec. (24.2-36.6) 09/02/18 14:37 Sodium 141 mmol/L (137-145) 09/04/18 05:56 Potassium 3.6 mmol/L (3.6-5.0) 09/04/18 05:56 Chloride 107.1 mmol/L (98-107) H 09/04/18 05:56 Carbon Dioxide 26 mmol/L (22-30) 09/04/18 05:56 Anion Gap 12 mmol/L 09/04/18 05:56 BUN 8 mg/dL (9-20) L 09/04/18 05:56 Creatinine 0.8 mg/dL (0.8-1.5) 09/04/18 05:56 Estimated GFR > 60 ml/min 09/04/18 05:56 BUN/Creatinine Ratio 10 % 09/04/18 05:56 Glucose 95 mg/dL (75-100) 09/04/18 05:56 Hemoglobin A1c 5.5 % (4-6) 09/03/18 02:17 Lactic Acid 1.20 mmol/L (0.7-2.0) 09/02/18 14:37 Calcium 7.9 mg/dL (8.4-10.2) L 09/04/18 05:56 Magnesium 2.10 mg/dL (1.7-2.3) 09/02/18 14:37 Total Bilirubin 0.20 mg/dL (0.1-1.2) 09/04/18 05:56 Direct Bilirubin < 0.2 mg/dL (0-0.2) 09/02/18 14:37 Indirect Bilirubin 0.0 mg/dL 09/02/18 14:37 AST 16 units/L (5-40) 09/04/18 05:56 ALT 15 units/L (7-56) 09/04/18 05:56 Alkaline Phosphatase 45 units/L (35-129) 09/04/18 05:56 Total Creatine Kinase 556 units/L (55-170) H 09/03/18 02:17 CK-MB (CK-2) 3.3 ng/mL (0.0-4.0) 09/03/18 02:17 CK-MB (CK-2) Rel Index 0.5 (0-4) 09/03/18 02:17 Troponin T < 0.010 ng/mL (0.00-0.029) 09/03/18 02:17 Total Protein 5.3 g/dL (6.3-8.2) L 09/04/18 05:56 Albumin 3.5 g/dL (3.9-5) L 09/04/18 05:56 Albumin/Globulin Ratio 1.9 % 09/04/18 05:56 Urine Opiates Screen Presumptive negative 09/02/18 13:40 Urine Methadone Screen Presumptive negative 09/02/18 13:40 Ur Barbiturates Screen Presumptive negative 09/02/18 13:40 Ur Phencyclidine Scrn Presumptive negative 09/02/18 13:40 Ur Amphetamines Screen Presumptive negative 09/02/18 13:40 U Benzodiazepines Scrn Presumptive negative 09/02/18 13:40 Urine Cocaine Screen Presumptive negative 09/02/18 13:40 U Marijuana (THC) Screen Presumptive negative 09/02/18 13:40 Drugs of Abuse Note Disclamer 09/02/18 13:40 Blood Type O POSITIVE 09/02/18 17:02 Antibody Screen Negative 09/02/18 17:02 Active Medications - Current Medications Current Medications: Generic Name Dose Route Start Last Admin Trade Name Freq PRN Reason Stop Dose Admin Acetaminophen 650 mg 09/03/18 00:56 Tylenol PO Q4H PRN Pain MILD(1-3)/Fever >100.5/ONEILL Hydromorphone HCl 0.5 mg 09/03/18 00:56 09/04/18 01:28 Dilaudid IV 0.5 mg Q3H PRN Administration Pain , Severe (7-10) Sodium Chloride 1,000 mls @ 75 mls/hr 09/03/18 01:00 09/04/18 12:15 Nacl 0.9% 1000 Ml IV 75 mls/hr DIRECT JORGE Administration Pantoprazole Sodium 80 mg/ 100 mls @ 10 mls/hr 09/03/18 01:00 09/04/18 10:08 Sodium Chloride IV 09/05/18 12:00 8 mg/hr DIRECT JORGE 10 mls/hr Administration 8 MG/HR Sodium Chloride 1,000 mls @ 50 mls/hr 09/03/18 14:00 09/03/18 14:34 Nacl 0.9% 1000 Ml IV 50 mls/hr DIRECT JORGE Administration Metoclopramide HCl 10 mg 09/03/18 00:56 Reglan IV Q6H PRN Nausea And Vomiting Ondansetron HCl 4 mg 09/03/18 00:56 09/03/18 02:46 Zofran IV 4 mg Q8H PRN Administration Nausea And Vomiting Pantoprazole Sodium 40 mg 09/05/18 22:00 Protonix PO BID JORGE Sodium Chloride 10 ml 09/03/18 10:00 09/04/18 12:19 Sodium Chloride Flush Syringe 10 Ml IV 10 ml BID JORGE Administration Sodium Chloride 10 ml 09/03/18 00:56 09/03/18 02:35 Sodium Chloride Flush Syringe 10 Ml IV 10 ml PRN PRN Administration LINE FLUSH
--- NOTE | 2018-09-04 15:01 | Gastroenterology Progress Note ---
Assessment and Plan # Melena # Upper GI bleed # Gastric ulcer - s/p EGD 1. Duodenal bulb ulcers (clean based) 2. Diverticulosis in the duodenal bulb. 3. Prepyloric ulcer with red pigmented spot treated with injection of epinepherine and gold probe cautery. 4. Multiple clean based antral ulcers. - currently no signs of recurrent bleeding. H/H stable. Rec: - monitor H/H. - continue with PPI, switch to protonix PO bid. - ok to discharge tomorrow if no signs of recurrent bleeding and H/H stable. - follow up in GI clinic in 2-3 weeks. - avoid NSAIDs. - will sign off. - Patient Problems (1) GI bleed Current Visit: Yes Status: Acute Qualifiers: GI bleed type/associated pathology: gastrojejunal ulcer Qualified Code(s): K28.4 - Chronic or unspecified gastrojejunal ulcer with hemorrhage Subjective Date of service: 09/04/18 Interval history: S/p EGD on 09/03/2018. Normal stool this morning. No abdominal pain. Objective - Constitutional Vitals: Temp Pulse Resp BP Pulse Ox 98.3 F 84 16 129/89 95 09/04/18 12:39 09/04/18 12:43 09/04/18 12:39 09/04/18 12:39 09/04/18 05:24 - EENT ENT: hearing intact, clear oral mucosa, dentition normal - Neck Neck: supple, normal ROM - Respiratory Respiratory effort: normal Respiratory: bilateral: CTA - Cardiovascular Rhythm: regular - Extremities Extremities: pulses intact, No edema, normal color, Full ROM - Gastrointestinal General gastrointestinal: Present: soft, non-tender, non-distended, normal bowel sounds - Integumentary Integumentary: Present: clear, warm, dry - Neurologic Neurological: alert and oriented x3 - Labs CBC & Chem 7: 09/04/18 05:56 09/04/18 05:56 Labs: Laboratory Results - last 24 hr 09/03/18 09/04/18 09/04/18 16:52 05:56 05:56 WBC 5.7 RBC 2.57 L Hgb 7.7 L 7.9 L Hct 22.6 L 23.6 L MCV 92 MCH 31 MCHC 34 RDW 14.4 Plt Count 148 Lymph % (Auto) 44.0 H [place] % (Auto) 6.7 Eos % (Auto) 1.9 Baso % (Auto) 0.5 Lymph # 2.5 [place] # 0.4 Eos # 0.1 Baso # 0.0 Seg Neutrophils % 46.9 Seg Neutrophils # 2.7 Sodium 141 Potassium 3.6 Chloride 107.1 H Carbon Dioxide 26 Anion Gap 12 BUN 8 L Creatinine 0.8 Estimated GFR > 60 BUN/Creatinine Ratio 10 Glucose 95 Calcium 7.9 L Total Bilirubin 0.20 AST 16 ALT 15 Alkaline Phosphatase 45 Total Protein 5.3 L Albumin 3.5 L Albumin/Globulin Ratio 1.9
[2018-09-05] MEDS: DILAUDID IV PRN (02:46)
[2018-09-05] MEDS: NACL 0.9% 1000 ML 1,000 ML IV SCH (05:57)
[2018-09-05 07:10] LABS: Hematocrit 24.4 % (35.5-45.6); Hemoglobin 8.1 gm/dl (11.8-15.2)
[2018-09-05 12:28] VITALS: BP 128/88
--- NOTE | 2018-09-05 13:22 | Discharge Summary ---
Providers - Providers Date of Admission: 09/02/18 17:58 Attending physician: NURA CRISTOBAL MD 09/02/18 16:22 Consult to Physician [CONS] Routine Comment: Consulting Provider: SUHAS CHAVIRA Physician Instructions: Reason For Exam: gi bleed Primary care physician: [facility], Hospitalization Reason for admission: anemia Condition: Stable Hospital course: Patient is a 53-year-old male that presents emergent complaints of GI bleed and dark stool for one week. Patient states he was seen his primary care's office yesterday and had a hemoglobin 11.2. Patient states primary care advised him to come to the ER yesterday but he didn't. Patient came today because he is feeling more weak and having dyspnea on exertion. Patient denies chest pain. Patient denies shortness of breath at rest. Patient denies abdominal pain. Patient denies rectal pain. Patient denies bright red blood per rectum. Patient denies vomiting. Patient denies nausea. Patient denies fever or chills. Has been taking Ibuprofen for right shoulder pain. Prior hx of EGD for gastric ulcer per hx. Patient underwent upper GI with the noted findings # Melena # Upper GI bleed # Gastric ulcer - s/p EGD 1. Duodenal bulb ulcers (clean based) 2. Diverticulosis in the duodenal bulb. 3. Prepyloric ulcer with red pigmented spot treated with injection of epinepherine and gold probe cautery. 4. Multiple clean based antral ulcers. - currently no signs of recurrent bleeding. H/H stable. Recmmendation was for the patient to follow with GI in 2-3 weeks and to stay on PPI BID and avoid NSAID. This was discussed in detail with the patient verbalized understanding Discharge diagnosis (1) GI bleed secondary to duodenal bulb ulcer and prepyloric ulcers and multiple antral ulcers (2) HTN (hypertension) (3) Arthritis (4) Anemia secondary to Acute blood loss (5)Morbid obesity Disposition: TO HOME OR SELFCARE Time spent for discharge: 35 MINS Core Measure Documentation - Palliative Care Palliative Care/ Comfort Measures: Not Applicable - Core Measures Any of the following diagnoses?: none Exam - Physical Exam Narrative exam: VITAL SIGNS: Reviewed. GENERAL: The patient appeared well nourished and normally developed, Vital signs as documented. HEAD: No signs of head trauma. EYES: Pupils are equal. Extraocular motions intact. right eye opacification EARS: Hearing grossly intact. MOUTH: Oropharynx is normal. NECK: No adenopathy, no JVD. CHEST: Chest with clear breath sounds bilaterally. No wheezes, rales, or rhonchi. CARDIAC: Regular rate and rhythm. S1 and S2, without murmurs, gallops, or rubs. VASCULAR: No Edema. Peripheral pulses normal and equal in all extremities. ABDOMEN: Soft, non tender and non distended. No rebound or guarding, and no masses palpated. Bowel Sounds normal. MUSCULOSKELETAL: Good range of motion of all major joints. Extremities without clubbing, cyanosis or edema. NEUROLOGIC EXAM: Alert and oriented x 3 No focal sensory or strength deficits. Speech normal. Follows commands. PSYCHIATRIC: Mood normal. SKIN: No rash or lesions. - Constitutional Vitals: Temp Pulse Resp BP Pulse Ox 98.3 F 66 20 128/88 100 09/05/18 11:47 09/05/18 11:47 09/05/18 11:47 09/05/18 11:47 09/05/18 11:47 Plan Activity: advance as tolerated, fall precautions Diet: low fat Special Instructions: record daily BP diary Follow up with: SUZY ZAVALA MD [Primary Care Provider] - 3-5 Days MIN,SUHAS DAY MD [Staff Physician] - 14 Days Forms: Accompanied Note, Work/School Release Form Prescriptions: Pantoprazole [Protonix TAB] 40 mg PO BID #60 tablet
[2018-09-05] MEDS ORDERED: PROTONIX PO SCH (22:00)
== END 2018-09-05 14:41 | disposition home or self-care (01) | DRG 378 ==
LOC: ED 13:43 → 3A 17:58
PROVIDERS: ADMIT Internal Medicine; ATTEND Internal Medicine
PROC: 0W3P8ZZ Control Bleeding in Gastrointestinal Tract, Via Natural or Artificial Opening Endoscopic (ICD-10-PCS; principal; 2018-09-03)
DX: K26.4 Chronic or unspecified duodenal ulcer with hemorrhage (principal); D62 Acute posthemorrhagic anemia; I95.9 Hypotension, unspecified; K21.9 Gastro-esophageal reflux disease without esophagitis; Z87.891 Personal history of nicotine dependence; M19.90 Unspecified osteoarthritis, unspecified site; K57.90 Diverticulosis of intestine, part unspecified, without perforation or abscess without bleeding; E66.01 Morbid (severe) obesity due to excess calories; Z68.35 Body mass index [BMI] 35.0-35.9, adult; Z71.3 Dietary counseling and surveillance; K25.4 Chronic or unspecified gastric ulcer with hemorrhage
CPT/HCPCS: 36415; 80048; 80053; 80076; 80307; 82140; 82550; 82553; 83036; 83735; 84484; 85014; 85018; 85025; 85610; 85730; 86850; 86900; 86901; 93005; 93010; 96361; 96374; G0378; C9113; J0171; J1170; J2405; J2704; J7030

== ENCOUNTER 2021-11-11 08:25 | Outpatient (CLI) | payer OTHER ==
--- NOTE | 2021-11-11 10:10 | XRay Report ---
LEFT SCAPULA 2 VIEWS INDICATION: S40.012A LEFT SCAPULAR CONTUSION. COMPARISON: None. IMPRESSION: Normal bone mineralization. No displaced scapular fracture is detected. Mild osteoarthr itic changes are noted at the shoulder. There appears to be mild subcutaneous edema overlying the sca pula. If further evaluation is needed, CT or MRI could be obtained. Signer Name: Bonifacio Barreto Jr, MD Signed: 11/11/2021 10:05 AM Workstation Name: [id number]
== END 2021-11-11 08:26 | disposition home or self-care (01) ==
LOC: XRAY 08:25
DX: S40.012A Contusion of left shoulder, initial encounter (principal); M19.012 Primary osteoarthritis, left shoulder; X58.XXXA Exposure to other specified factors, initial encounter; Y93.89 Activity, other specified; Y92.89 Other specified places as the place of occurrence of the external cause; Y99.8 Other external cause status